=== PATIENT | male | born 1955 | race Caucasian/White ===

== ENCOUNTER → 2025-06-19 | Outpatient (CLI) | payer SELFPAY ==
[~2025-06-19] MED LIST: ASPI-556 PO; CALC-24 PO; KRIL500C PO; LISI2.5T13 PO; METO25TA6 PO; OMEG1CAP12 PO; PRAV20TA59 PO; UBID100C45 PO; [UNRECOGNIZED DRUG - CODE] PO; androgel
--- NOTE | 2025-06-19 17:56 | HMCIMG ---
EXAM: MR Lumbar Spine Without Intravenous Contrast. 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 TECHNIQUE: Magnetic resonance images of the lumbar spine without intravenous contrast in multiple planes. CONTRAST: None. COMPARISON: None provided. FINDINGS: VERTEBRAE: No acute fracture or focal osseous lesion. Multilevel degenerative endplate changes are present. ALIGNMENT: Bony alignment is anatomic without spondylolisthesis. SPINAL CORD AND CAUDA EQUINA: Distal cord and conus demonstrate normal signal and morphology. No intradural or extradural mass is identified. FINDINGS BY LEVEL: L1-L2: No central canal or foraminal stenosis. L2-L3: No central canal or foraminal stenosis. L3-L4: No central canal or foraminal stenosis. L4-L5: Degenerative disc disease with Pfirrmann grade IIIIV disc desiccation. Mild to moderate facet joint arthrosis with a right-sided extraarticular/intraspinal facet synovial cyst measuring approximately 1.5 x 1.0 cm projecting into the right dorsal aspect of the canal, resulting in severe central canal stenosis with marked compression of the traversing right L5 nerve root. There is distortion of the exiting right L4 nerve root and compression of the exiting left L4 nerve root at the neural foramina. L5-S1: Disc degeneration with Pfirrmann grade IIIIV desiccation and diffuse disc bulge with superimposed right posterolateral disc protrusion. This results in moderate right neural foraminal stenosis with distortion of the exiting right L5 nerve root and narrowing of the left neural foramen with distortion of the exiting left L5 nerve root. Central canal caliber is preserved without high-grade stenosis. PARASPINAL SOFT TISSUES: No paraspinal mass or fluid collection. Small bilateral renal cysts are seen. IMPRESSION: * Degenerative lumbar spondylosis with multilevel disc desiccation (Pfirrmann grade IIIIV) and facet arthrosis, most pronounced at L4-L5. * L4-L5 level demonstrating mild to moderate facet arthrosis with a right-sided facet synovial cyst (approximately 1.5 x 1.0 cm) causing severe spinal canal stenosis, severe compression of the traversing right L5 nerve root, distortion of the exiting right L4 nerve root, and compression of the traversing L5 and exiting left L4 nerve root. * L5-S1 diffuse disc bulge with right posterolateral disc protrusion resulting in moderate right neural foraminal stenosis with distortion of the exiting right L5 nerve root and distortion of the exiting left L5 nerve root, without high-grade central canal stenosis. /Jones
== END | disposition home or self-care (01) ==
LOC: RAH 07:33
PROVIDERS: ATTEND Family Medicine
DX: M47.16 Other spondylosis with myelopathy, lumbar region (principal); M54.42 Lumbago with sciatica, left side; M51.379 Other intervertebral disc degeneration, lumbosacral region without mention of lumbar back pain or lower extremity pain; M48.07 Spinal stenosis, lumbosacral region; M71.38 Other bursal cyst, other site; N28.1 Cyst of kidney, acquired
CPT/HCPCS: 72148